=== PATIENT | female | born 1940 | race Caucasian/White ===

== ENCOUNTER 2019-01-24 16:37 | Observation (INO) ==
--- NOTE | 2019-01-24 16:53 | Emergency Department Note ---
Disposition Clinical Impression: Peripheral edema Dyspnea Qualifiers: Dyspnea type: orthopnea Qualified Code(s): R06.01 - Orthopnea Pulmonary edema Qualifiers: Chronicity: acute Qualified Code(s): J81.0 - Acute pulmonary edema Disposition: Admitted As Inpatient Condition: Fair Referrals: Ernestina Marsh MD [Primary Care Provider] - Forms: ED Satisfaction Letter Time of Disposition: 17:48 SOB HPI - General Chief Complaint: ED Upper Respiratory Infection Stated Complaint: COPD flare up Coughing up yellow phlegm Time Seen by Provider: 01/24/19 16:49 Source: patient, family Mode of arrival: private vehicle Limitations: no limitations Nursing Notes Reviewed: Yes Vital Signs Reviewed: Yes - History of Present Illness Patient presents from the office of Casandra Red NP. She presented there with concern of "congestion". She has had increased lower extremity edema for 2 weeks, increased shortness of breath and her lungs sounded full prompting her being brought here by family for concern of CHF. She does have history of an NH and an ICD placed. She is noted to have stable vital signs but a saturation of 88% on room air when she first presented to the office and 92% at rest. Her cardiology care is with Dr. Maravilla at [facility] and they were encouraged to go to [facility]. The patient reportedly went to stay locally and I was called and that they were coming here. Patient seen immediately upon arrival. She does complain of "congestion". She also has orthopnea such that she cannot lay down to sleep. She states increased lower extremity edema for one to 2 weeks. She states her cough is productive of some yellow phlegm. She denies fevers or chills but states that she is "always cold". She denies a feeling of chest pain or palpitation. She denies any change her medicines. She denies a history of CHF states she did have heart disease and heart attack in 2004. She denies history of COPD or asthma. She is not on a diuretic. She denies any ill exposures. She is alert, conversant with good color and speaking in full sentences. Pt Subjective Complaint: shortness of breath, cough Onset (ago): week(s) (2) Severity: moderate Consistency/Duration: gradually worsening Improves with: rest, upright position Worsens with: lying flat, exertion, coughing Associated symptoms: Reports: cough, wheezing, sputum production, orthopnea. Denies: chest pain, pain with inspiration, fever, lower extremity pain, polyuria, polydipsia, parasthesias, palpitations, hemoptysis, diaphoresis, nausea/vomiting, syncope, abdominal pain, rash, sense of impending doom Treatment prior to arrival: none Cough present: Yes Cough Description: Productive, Wheezy Cough Frequency: Intermittent Sputum production: Yes Sputum Amount: Moderate Sputum Color: Yellow - Related Data Home oxygen amount: none Home Medications Medication Instructions Recorded Confirmed Aspirin [Lo-Dose Aspirin EC] 81 mg PO DAILY 05/04/16 Levothyroxine 100 mcg PO DAILY 05/04/16 Lisinopril 20 mg PO DAILY 05/04/16 Metoprolol [Lopressor] 50 mg PO DAILY 05/04/16 Plavix 75 mg PO DAILY 05/04/16 Atorvastatin Calcium [Lipitor] 20 mg PO QPM 01/24/19 01/24/19 Allergies Allergy/AdvReac Type Severity Reaction Status Date / Time No Known Allergies Allergy Verified 05/04/16 18:52 All systems ED: reviewed and negative except as stated. Past Medical History - Past Medical History Attestation: Yes The following information was validated with the patient. Source: patient, old records reviewed, obtained from family, nursing notes reviewed Medical history: Reports: coronary artery disease, hyperlipidemia, hypertension, myocardial infarction, thyroid disease. Denies: asthma, COPD, DVT, diabetes, pulmonary embolus Surgical history: Reports: pacemaker/AICD Psychiatric history: Reports: no psych history - Social History Smoking Status: Never smoker Smokeless Tobacco Status: No Alcohol use: Reports: none Drug use: Reports: none Physical Exam - General Limitations: age General appearance: alert, in no apparent distress - Head Head exam: atraumatic, normocephalic, normal inspection - Eye Eye exam: Present: normal appearance, PERRL, EOMI. Absent: scleral icterus, conjunctival injection - ENT ENT exam: normal exam, normal oropharynx, mucous membranes moist - Neck Neck exam: Present: normal inspection, full ROM, trachea midline. Absent: tenderness, lymphadenopathy - Chest Chest inspection: Present: normal inspection, symmetric chest wall rise - Respiratory Respiratory exam: Present: wheezes, prolonged expiratory phase. Absent: respiratory distress, accessory muscle use - Cardiovascular Cardiovascular exam: Present: regular rate, normal rhythm, normal heart sounds. Absent: tachycardia - Abdominal Exam Abdominal exam: Present: soft, Non-Tender, normal bowel sounds. Absent: tenderness, distention, guarding, rebound, rigidity - Extremities Exam Extremities exam: Present: normal inspection, full ROM, normal capillary refill, pedal edema (2+). Absent: tenderness, calf tenderness - Expanded Lower Extremity Exam Neurovascular/Tendon exam: Present: normal capillary refill. Absent: motor deficit, sensory deficit, tendon deficit Gait: not tested/not observed - Neurological Exam Neurological exam: Present: alert, oriented X3 - Psychiatric Psychiatric exam: Present: normal affect, normal mood. Absent: agitated, a nxious - Skin Skin exam: Present: warm, dry, intact, normal color. Absent: cyanosis, diaphoresis, pallor Course Course Narrative: 1744: With return of all testing, care is discussed with Dr. Kelly. He is agreeable with inpatient observation for diuresis and observation. Verbal orders have been given for her observation. Vital Signs Temperature 97.9 F 01/24/19 16:39 Pulse Rate 93 01/24/19 16:39 Respiratory Rate 18 01/24/19 16:39 Blood Pressure 129/86 01/24/19 16:39 O2 Sat by Pulse Oximetry 92 01/24/19 16:39 Temperature 97.9 F 01/24/19 16:39 Pulse Rate 87 01/24/19 17:13 Respiratory Rate 18 01/24/19 17:13 Blood Pressure 136/90 01/24/19 17:13 O2 Sat by Pulse Oximetry 93 01/24/19 17:13 Oxygen Delivery Oxygen Delivery Nasal Cannula Shortness of Breath/Dyspnea - Differential Diagnosis Likely: congestive heart failure, pneumonia, asthma with exacerbation - Medical Records Medical records reviewed: Yes I reviewed the patient's medical records. - Lab Data Lab results reviewed: Yes I reviewed the patient's lab results. Result diagrams: 01/24/19 17:10 01/24/19 17:10 Lab Results 01/24/19 01/24/19 01/24/19 Range/Units 17:10 17:10 17:10 WBC (4.3-11.1) K/mcL RBC (3.82-4.97) M/mcL Hgb (11.5-15.4) g/dL Hct (35.3-44.9) % MCV (83.0-100.0) fL MCH (28.0-33.3) pg MCHC (31.6-35.5) g/dL RDW (11.5-14.5) % Plt Count (140-400) K/mcL MPV (9.4-12.4) fL Immature Gran % (0-4) % Seg Neutrophils % % Lymphocytes % % Monocytes % % Eosinophils % % Basophils % % Neutrophils # (1.6-8.9) K/mcL Lymphocytes # (0.6-4.6) K/mcL Monocytes # (0.0-1.3) K/mcL Eosinophils # (0.0-0.6) K/mcL Basophils # (0.0-0.2) K/mcL PT 13.1 H (9.4-12.1) Seconds INR 1.2 APTT 29.7 (26.0-36.0) Seconds Sodium (136-145) mEq/L Potassium (3.5-5.1) mEq/L Chloride (98-107) mEq/L Carbon Dioxide (23-29) mEq/L BUN (8-23) mg/dL Creatinine (0.60-1.20) mg/dL Est GFR ( Amer) (> 60) Est GFR (Non-Af Amer) (> 60) BUN/Creatinine Ratio (6-26) Glucose (70-105) mg/dL Calculated Osmolality (280-300) Lactic Acid 1.3 (0.5-2.2) mmol/L Calcium (8.6-10.3) mg/dL Troponin I (< 0.04) ng/mL B-Natriuretic Peptide 1357 H (Less than 100) pg/mL 01/24/19 01/24/19 Range/Units 17:10 17:10 WBC 10.5 (4.3-11.1) K/mcL RBC 4.54 (3.82-4.97) M/mcL Hgb 13.4 (11.5-15.4) g/dL Hct 41.2 (35.3-44.9) % MCV 90.7 (83.0-100.0) fL MCH 29.5 (28.0-33.3) pg MCHC 32.5 (31.6-35.5) g/dL RDW 14.9 H (11.5-14.5) % Plt Count 177 (140-400) K/mcL MPV 12.5 H (9.4-12.4) fL Immature Gran % 0.5 (0-4) % Seg Neutrophils % 78.0 % Lymphocytes % 7.5 % Monocytes % 12.5 % Eosinophils % 1.1 % Basophils % 0.4 % Neutrophils # 8.2 (1.6-8.9) K/mcL Lymphocytes # 0.8 (0.6-4.6) K/mcL Monocytes # 1.3 (0.0-1.3) K/mcL Eosinophils # 0.1 (0.0-0.6) K/mcL Basophils # 0.0 (0.0-0.2) K/mcL PT (9.4-12.1) Seconds INR APTT (26.0-36.0) Seconds Sodium 142 (136-145) mEq/L Potassium 3.5 (3.5-5.1) mEq/L Chloride 105 (98-107) mEq/L Carbon Dioxide 26 (23-29) mEq/L BUN 19 (8-23) mg/dL Creatinine 0.75 (0.60-1.20) mg/dL Est GFR ( Amer) > 60 (> 60) Est GFR (Non-Af Amer) > 60 (> 60) BUN/Creatinine Ratio 25 (6-26) Glucose 104 (70-105) mg/dL Calculated Osmolality 297 (280-300) Lactic Acid (0.5-2.2) mmol/L Calcium 8.9 (8.6-10.3) mg/dL Troponin I < 0.03 (< 0.04) ng/mL B-Natriuretic Peptide (Less than 100) pg/mL - Radiology Data Radiology results reviewed: Yes I reviewed the patient's radiology results. Single view chest x-ray is performed. This demonstrates an increased interstitial markings consistent with mild pulmonary edema. I do not see focal infiltrate, effusion or pneumothorax. Patient does have prominent cardiomegaly. She has an AICD in place with intact wires. No other acute abnormality is seen. This is on my interpretation. Impressions Chest X-Ray 01/24/19 16:53 IMPRESSION: Cardiomegaly. Patchy airspace opacities bilaterally, may be related to pulmonary edema versus pneumonia. Mild left pleural effusion. D/ / Noble Tamayo MD / Noble Tamayo MD Interpreting Provider: Noble Tamayo MD - EKG Data EKG attestation: Yes I reviewed and interpreted this EKG. EKG shows normal: Reports: sinus rhythm, axis, intervals, ST-T waves Rhythm: Reports: PVC's [place]/QRS: Reports: IVCD Interpretation: Reports: no acute changes, other (Sinus rhythm with multifocal PVCs and couplets.)
[2019-01-24] MEDS ORDERED: Furosemide 40 MG/4 ML VIAL IVP ONE (16:54)
[2019-01-24 17:24] LABS: Basophils % 0.4 %; Eosinophils # 0.1 K/mcL (0.0-0.6); Eosinophils % 1.1 %; Hematocrit 41.2 % (35.3-44.9); Hemoglobin 13.4 g/dL (11.5-15.4); Immature Granulocytes % 0.5 % (0-4); Lymphocytes # 0.8 K/mcL (0.6-4.6); Lymphocytes % 7.5 %; Mean Corpuscular HGB Conc 32.5 g/dL (31.6-35.5); Mean Corpuscular Hemoglobin 29.5 pg (28.0-33.3); Mean Corpuscular Volume 90.7 fL (83.0-100.0); Mean Platelet Volume 12.5 fL (9.4-12.4); Monocytes # 1.3 K/mcL (0.0-1.3); Monocytes % 12.5 %; Neutrophils # 8.2 K/mcL (1.6-8.9); Platelet Count 177 K/mcL (140-400); Red Blood Count 4.54 M/mcL (3.82-4.97); Red Cell Distribution Width 14.9 % (11.5-14.5); White Blood Count 10.5 K/mcL (4.3-11.1)
[2019-01-24 17:27] LABS: INR 1.2; Prothrombin Time 13.1 Seconds (9.4-12.1)
[2019-01-24 17:30] LABS: Activated Partial Thrombo Time 29.7 Seconds (26.0-36.0)
[2019-01-24 17:39] LABS: Troponin I < 0.03 ng/mL (< 0.04)
[2019-01-24 17:40] LABS: BUN/Creatinine Ratio 25 (6-26); Blood Urea Nitrogen 19 mg/dL (8-23); Calcium 8.9 mg/dL (8.6-10.3); Carbon Dioxide 26 mEq/L (23-29); Chloride 105 mEq/L (98-107); Glucose 104 mg/dL (70-105); Osmolality,Calculated 297 (280-300); Potassium 3.5 mEq/L (3.5-5.1); Sodium 142 mEq/L (136-145); eGFR For African Americans > 60 (> 60); eGFR For Non-African Americans > 60 (> 60)
[2019-01-24] MEDS ORDERED: Ondansetron ODT 4 MG TAB.RAPDIS SL PRN (20:21)
[2019-01-24] MEDS ORDERED: Naloxone 0.4 MG/ML INJ IVP PRN (20:21)
[2019-01-24] MEDS ORDERED: Mag Hydrox/Al Hydrox/Simeth 30 ML UDC PO PRN (20:21)
[2019-01-24] MEDS ORDERED: MOM Conc 10 ML UD.LIQ PO PRN (20:21)
[2019-01-25] MEDS ORDERED: Azithromycin 500 MG in 0.9 % Sodium Chloride 250 ML IVPB SCH (13:00)
[2019-01-25] MEDS ORDERED: Perflutren Lipid Microsphere 1.3 ML in 0.9 % Sodium Chloride 8.7 ML IVP ONE (14:02)
--- NOTE | 2019-01-25 14:05 | Internal Med History&Physical ---
Date of Encounter: 01/25/19 Time of Encounter: 12:20 Assessment and Plan (1) Pulmonary edema Current visit: Yes Status: Acute Suspect cardiogenic etiology. IV diuretics have been ordered. Lisinopril and metoprolol will be continued. Qualifiers: Chronicity: acute Qualified Code(s): J81.0 - Acute pulmonary edema (2) Heart failure Current visit: Yes Status: Acute Rx as above. Echocardiogram has been ordered. Qualifiers: Heart failure type: unspecified Heart failure chronicity: acute on chronic Qualified Code(s): I50.9 - Heart failure, unspecified (3) Hypertension Current visit: Yes Status: Chronic Continue metoprolol and lisinopril. Qualifiers: Hypertension type: essential hypertension Qualified Code(s): I10 - Essential (primary) hypertension (4) ASHD (arteriosclerotic heart disease) Current visit: Yes Status: Acute Continue metoprolol, Plavix, and aspirin. She can discuss with her PCP discontinuation of aspirin or Plavix since she is several years out from stent placement and may not require DAPT. (5) Hypothyroidism Current visit: Yes Status: Chronic TSH was normal at 2.466 on 10/20/2018. Continue present dose Synthroid. Qualifiers: Hypothyroidism type: unspecified Qualified Code(s): E03.9 - Hypothyroidism, unspecified (6) Neutrophilia Current visit: Yes Status: Acute Borderline. She has been started on empiric antibiotics for possible pneumonia. Pro-calcitonin level will be checked. Internal Medicine - H&P: HPI Chief complaint: Dyspnea and edema Admitted From: Emergency Dept Plans for Post Hospital Care: Home History of present illness: Ms. Torre is a 78 year old female who came to emergency room stating she had 2 week history of increased dyspnea on exertion and edema. She reports she had a cough productive of yellow sputum. She denies chest pain. She was evaluated in emergency room and was felt to have exacerbation of heart failure with early pulmonary edema. She was admitted to [facility] floor for ongoing care needs. Cardiovascular history is significant for hypertension and known ASHD status post NH 2004 followed by 2-3 stents placed. He reports her most recent heart cath approximately 2014 resulted in no additional intervention. She had AICD placement 2005 for a "weak heart" but does not know details. She denies DVT or pulmonary embolus. Past Med Surg Social Fam HX - Past Medical History Medical history: coronary artery disease, hyperlipidemia, hypertension, myocardial infarction, thyroid disease Psychiatric history: no psych history - Past Surgical History Surgical History: pacemaker/AICD - Social History Smoking Status: Never smoker Smokeless Tobacco Status: No Alcohol use: none Drug use: none Internal Medicine - H&P: Meds Aspirin [Lo-Dose Aspirin EC] 81 mg PO DAILY 05/04/16 [History] Levothyroxine 100 mcg PO DAILY 05/04/16 [History] Lisinopril 20 mg PO DAILY 05/04/16 [History] Metoprolol [Lopressor] 50 mg PO DAILY 05/04/16 [History] Plavix 75 mg PO DAILY 05/04/16 [History] Atorvastatin Calcium [Lipitor] 20 mg PO QPM 01/24/19 [History] Allergy/AdvReac Type Severity Reaction Status Date / Time No Known Allergies Allergy Verified 05/04/16 18:52 All Systems PM: A 10-system review of systems was performed and is negative for pertinent findings except as documented above in the HPI. Review of systems: Gen.: She states her weight has been stable for several months Cardiovascular: As per history of present illness Respiratory: She is a lifelong nonsmoker and denies chronic lung disease. GI: She denies disorders of her liver gallbladder or exocrine pancreas : She denies hematuria dysuria or kidney stones Neurologic: She denies large distribution strokes or seizures. Endocrine: She has hypothyroidism and hyperlipidemia. She denies diabetes Hematology/oncology: She denies blood disorders cancers or anemia Psychiatric: She denies anxiety depression or other mental health issues [place] skeletal: She has DJD but denies gout or other bone joint or muscle disorders. - Constitutional Vitals: Temp Pulse Resp BP Pulse Ox 97.7 F 77 20 121/81 95 01/25/19 10:18 01/25/19 10:18 01/25/19 10:18 01/25/19 10:18 01/25/19 10:18 Exam: Gen.: She is a well-developed well-nourished female resting comfortably in bed who appears in no acute distress at present time HEENT: Head is atraumatic and normocephalic. Eyes: EOMI. There is no scleral icterus. Mouth: Mucosa is moist. Neck: Supple and nontender. There is no thyromegaly or adenopathy noted. Heart: Regular without murmurs gallops or ectopics Lungs: No wheezes or crackles are heard. Abdomen: Soft and nontender. No masses or guarding are noted. Extremities: She has trace pitting edema in the dorsum of feet and lower legs b ilaterally. Dorsalis pedis and posterior tibial pulses are trace palpable bilaterally. Her feet are warm to touch. She has mild DJD changes or her hands. Neurologic: Mental status: She is talkative and a good historian. Cranial nerves: Smile is symmetric. Forehead wrinkles bilaterally. Tongue protrudes midline. EOMI. Motor: There is no pronator drift. Cerebellar: Finger to nose is intact bilaterally. Skin: Warm and dry Internal Med - H&P Results - Labs CBC & Chem 7: 01/24/19 17:10 01/24/19 17:10 Labs: Short CBC 01/24/19 Range/Units 17:10 WBC 10.5 (4.3-11.1) K/mcL Hgb 13.4 (11.5-15.4) g/dL Hct 41.2 (35.3-44.9) % Plt Count 177 (140-400) K/mcL Neutrophils # 8.2 (1.6-8.9) K/mcL BMP 01/24/19 17:10 Sodium 142 Potassium 3.5 Chloride 105 Carbon Dioxide 26 BUN 19 Creatinine 0.75 Glucose 104 Calcium 8.9 Cardiac Enzymes 01/24/19 Range/Units 17:10 Troponin I < 0.03 (< 0.04) ng/mL - Impressions ITS Impressions Chest X-Ray 01/24/19 16:53 IMPRESSION: Cardiomegaly. Patchy airspace opacities bilaterally, may be related to pulmonary edema versus pneumonia. Mild left pleural effusion. D/ / Noble Tamayo MD / Noble Tamayo MD Interpreting Provider: Noble Tamayo MD
[2019-01-25] MEDS: cefTRIAXone 1,000 MG in Water for inj. (sterile) 10 ML IVP SCH (14:50)
[2019-01-25] MEDS: Furosemide 20 MG/2 ML VIAL IVP SCH ×2 (14:50)
--- NOTE | 2019-01-25 15:55 | Electrocardiograph Report ---
[place] [id number] Test Date: 2019-01-24 Pat Name: Arlette Torre Department: EDP-16 Room: [facility] Gender: F Physician Support Coordinator: : 1940 Requested By: Chester Chávez Order Number: [id number] Reading MD: Tavo Maravilla Measurements Intervals [place] Rate: 93 P: 81 IN: 194 QRS: -42 QRSD: 158 T: 117 QT: 412 QTc: 479 Interpretive Statements Sinus rhythm Atrial pacing Paired ventricular premature complexes Nonspecific IVCD with LAD Consider anterior infarct Abnormal T, consider ischemia, lateral leads Electronically Signed On 01-25-2019 15:54:07 EDT by Tavo Maravilla
[2019-01-25] MEDS: Lactobacillus 1 EACH CAP.SPRINK PO SCH (20:58)
[2019-01-26 07:02] LABS: Basophils # 0.1 K/mcL (0.0-0.2); Eosinophils # 0.4 K/mcL (0.0-0.6); Eosinophils % 6.1 %; Hematocrit 39.3 % (35.3-44.9); Hemoglobin 12.8 g/dL (11.5-15.4); Immature Granulocytes % 0.3 % (0-4); Lymphocytes # 1.5 K/mcL (0.6-4.6); Lymphocytes % 23.7 %; Mean Corpuscular HGB Conc 32.6 g/dL (31.6-35.5); Mean Platelet Volume 12.4 fL (9.4-12.4); Monocytes # 1.2 K/mcL (0.0-1.3); Monocytes % 18.5 %; Neutrophils # 3.2 K/mcL (1.6-8.9); Platelet Count 187 K/mcL (140-400); Red Blood Count 4.27 M/mcL (3.82-4.97); Red Cell Distribution Width 15.1 % (11.5-14.5); Segmented Neutrophils % 50.4 %; White Blood Count 6.3 K/mcL (4.3-11.1)
[2019-01-26 07:13] LABS: Alanine Aminotransferase 35 Units/L (7-52); Albumin 3.6 g/dL (3.5-5.7); Albumin/Globulin Ratio 1.6 (1.1-2.2); Alkaline Phosphatase 80 Units/L (34-104); Aspartate Amino Transferase 20 Units/L (13-39); BUN/Creatinine Ratio 27 (6-26); Bilirubin,Total 0.6 mg/dL (0.3-1.0); Blood Urea Nitrogen 24 mg/dL (8-23); Calcium 8.7 mg/dL (8.6-10.3); Carbon Dioxide 30 mEq/L (23-29); Chloride 107 mEq/L (98-107); Globulin 2.2 g/dL (2.4-3.5); Glucose 100 mg/dL (70-105); Osmolality,Calculated 300 (280-300); Sodium 143 mEq/L (136-145); Total Protein 5.8 g/dL (6.4-8.9); eGFR For African Americans > 60 (> 60); eGFR For Non-African Americans > 60 (> 60)
[2019-01-26 07:21] VITALS: BP 113/71
[2019-01-26 07:49] LABS: Platelet Estimate Normal (Normal)
[2019-01-26] MEDS: Furosemide 20 MG/2 ML VIAL IVP SCH (08:44)
[2019-01-26] MEDS: cefTRIAXone 1,000 MG in Water for inj. (sterile) 10 ML IVP SCH (08:44)
[2019-01-26] MEDS: Lactobacillus 1 EACH CAP.SPRINK PO SCH (08:46)
[2019-01-26] MEDS ORDERED: Lisinopril 20 MG TABLET PO SCH (09:00)
--- NOTE | 2019-01-26 09:54 | Discharge Summary ---
Orders not resulted at time of discharge: Pending orders 01/24/19 17:10 Culture,Blood [] Stat Date of Encounter: 01/26/19 Time of Encounter: 09:45 - Discharge Diagnosis (1) Pulmonary edema Priority: Primary Status: Acute Qualifiers: Chronicity: acute Qualified Code(s): J81.0 - Acute pulmonary edema (2) Heart failure Priority: Secondary Status: Acute Qualifiers: Heart failure type: unspecified Heart failure chronicity: acute on chronic Qualified Code(s): I50.9 - Heart failure, unspecified (3) Hypertension Priority: Secondary Status: Chronic Qualifiers: Hypertension type: essential hypertension Qualified Code(s): I10 - Essential (primary) hypertension (4) ASHD (arteriosclerotic heart disease) Priority: Secondary Status: Acute (5) Hypothyroidism Priority: Secondary Status: Chronic Qualifiers: Hypothyroidism type: unspecified Qualified Code(s): E03.9 - Hypothyroidism, unspecified (6) Neutrophilia Priority: Secondary Status: Resolved Hospital course: Ms. Torre is a 78 year old female who came to emergency room stating she had 2 week history of increased dyspnea on exertion and edema. She reports she had a cough productive of yellow sputum. She denies chest pain. She was evaluated in emergency room and was felt to have exacerbation of heart failure with early pulmonary edema. She was admitted to [facility] for ongoing care needs. Initial orders were written by the emergency room physician. I saw her on January 25 and performed a history and physical. She was started on IV diuretics. Lisinopril and metoprolol were continued. Echocardiogram showed LV EF of 25-30% with severe global LV systolic dysfunction. Indeterminate diastolic function was reported. There was severe LV dilatation with end- diastolic diameter 7.10 cm. There was LAE at 4.30 cm. There was moderate aortic regurgitation, moderate to severe mitral regurgitation, moderate tricuspid regurgitation, and pulmonary hypertension with estimated RVSP 67 mmHg. She felt clinically improved the following day despite BN peptide slightly higher at 1457. She denied dyspnea on ambulation in the hospital room. She felt stable for discharge home. She will continue with Bumex at discharge. She will follow with her customer relations specialist in a few weeks' time. WBC decreased to 6.3 with decreased left shift on differential on January 26. Pro-calcitonin level returned WNL at 0.02. She received antibiotics during her hospital stay but these will not be continued at discharge. She will follow with her PCP Casandra Red CNP within 1 week. - Time Spent with Patient Total time spent providing and/or coordinating discharge services: - Discharge Medications Prescriptions: New Bumetanide [Bumex] 1 mg PO DAILY #30 tablet Potassium Chloride 10 meq PO DAILY #30 tab.er.prt Continued Plavix 75 mg PO DAILY Metoprolol [Lopressor] 50 mg PO DAILY Lisinopril 20 mg PO DAILY Levothyroxine 100 mcg PO DAILY Aspirin [Lo-Dose Aspirin EC] 81 mg PO DAILY Atorvastatin Calcium [Lipitor] 20 mg PO QPM Home Medications: Aspirin [Lo-Dose Aspirin EC] 81 mg PO DAILY 05/04/16 [History] Levothyroxine 100 mcg PO DAILY 05/04/16 [History] Lisinopril 20 mg PO DAILY 05/04/16 [History] Metoprolol [Lopressor] 50 mg PO DAILY 05/04/16 [History] Plavix 75 mg PO DAILY 05/04/16 [History] Atorvastatin Calcium [Lipitor] 20 mg PO QPM 01/24/19 [History] Bumetanide [Bumex] 1 mg PO DAILY #30 tablet 01/26/19 [Rx] Potassium Chloride 10 meq PO DAILY #30 tab.er.prt 01/26/19 [Rx] Allergies/Adverse Reactions: Allergy/AdvReac Type Severity Reaction Status Date / Time No Known Allergies Allergy Verified 05/04/16 18:52 Date of admission: 01/24/19 18:04 Primary care physician: Ernestina Marsh - Constitutional Vitals: Temp Pulse Resp BP Pulse Ox 97.7 F 78 16 113/71 93 01/26/19 07:20 01/26/19 07:20 01/26/19 07:20 01/26/19 07:20 01/26/19 07:20 - Patient Status Disposition: Home, Self-Care Condition: Fair - Discharge Instructions Follow Up With: Casandra Red CNP [Advanced Practice Nurse] - 1 week - Diet and Activity Activity: resume usual activities as tolerated Diet: advance to your usual diet
== END 2019-01-26 11:30 | disposition home or self-care (01) ==
LOC: EMEROOPIK 16:37 → INPPIK 16:37
PROVIDERS: ADMIT Internal Medicine; ATTEND Internal Medicine